=== PATIENT | male | born 1995 | race Caucasian/White ===

== ENCOUNTER 2020-06-07 13:35 | Emergency (ER) | payer OTHER ==
[~2020-06-07] VITALS: Ht 185.4 cm; Wt 86.2 kg
[2020-06-07 13:36] VITALS: BP 128/68
--- NOTE | 2020-06-07 13:40 | NUR ---
Patient taken to chair E
--- NOTE | 2020-06-07 13:44 | NUR ---
25 y/o male biba from home c/o sudden onset anxiety attack. Per ems patient became combative on scene stating he has severe PTSD. Given 2.5mg Versed IN. Pt calm and cooperative at this time. medhx: PTSD
--- NOTE | 2020-06-07 13:54 | NUR ---
ULISES Chavis at chairside examining patient
[2020-06-07 14:43] VITALS: BP 128/68
--- NOTE | 2020-06-07 14:43 | NUR ---
Patient discharged with v/s stable. Written and verbal after care instructions about anxiety and panic attacks given and explained. Patient verbalized understanding. Ambulatory with steady gait. All questions addressed prior to discharge. Advised to follow up with PMD.
== END 2020-06-07 14:43 | disposition home or self-care (01) ==
LOC: MED 13:35
DX: F41.9 Anxiety disorder, unspecified (principal); R20.0 Anesthesia of skin; R20.2 Paresthesia of skin; Z90.49 Acquired absence of other specified parts of digestive tract
CPT/HCPCS: 99283